=== PATIENT | female | born 1975 | race Caucasian/White ===

== ENCOUNTER 2023-12-30 13:33 | Emergency (ER) | payer OTHER ==
[~2023-12-30 13:33] MED LIST: AMBIEN10 MG PO; BUSPAR10 MG PO; CEPHALEXIN500 M1 PO; CLONAZEPAM1 M1 PO; DOLOPHINE HCL5 MG PO; EC NAPROSYN500 MG PO; EFFEXOR XR150 MG PO; FLEXERIL 1010 MG/TAB PO; GABAPENTIN600 MG PO; LAMICTAL150 MG PO; LORTAB 5/500 501 TAB PO; MOTRIN 400400 MG/TAB PO; MULTI VITAMINS1 TAB PO; NAPROSYN500 MG PO; NEURONTIN100 MG/CAP PO; NEURONTIN600 MG/TAB PO; NO HOME MEDICATIONS; PERCOCET 500 MG1 TAB PO; PREDNISONE20 MG PO; RESTORIL30 MG PO; TOPAMAX 25MG25 M1 PO; ZOLOFT 100MG100 MG PO; ZOLOFT100 MG PO
[2023-12-30 13:47] VITALS: TEMP 97.5
[2023-12-30] MEDS ORDERED: Albuterol/Ipratropium 3 MG-0.5 MG/3 ML Neb Soln IH ONE (14:30)
[2023-12-30] MEDS ORDERED: predniSONE 20 MG TAB PO ONE (14:30)
[2023-12-30] MEDS ORDERED: PREDNISONE20 MG PO (15:10)
[2023-12-30] MEDS ORDERED: NEB MC (15:10)
[2023-12-30] MEDS ORDERED: IPRATROPIUM BROM3 M1 IH (15:10)
[2023-12-30 15:18] VITALS: BP 123/69; PULSE 67
[2023-12-31] MEDS ORDERED: IPRATROPIUM BROM3 M1 IH (15:08)
[2023-12-31] MEDS ORDERED: PREDNISONE20 MG PO (15:08)
[2023-12-31] MEDS ORDERED: NEB MC (15:18)
== END 2023-12-30 15:23 | disposition home or self-care (01) ==
LOC: COL.ER 13:33
DX: J20.9 Acute bronchitis, unspecified (principal); F17.290 Nicotine dependence, other tobacco product, uncomplicated
CPT/HCPCS: J7512